=== PATIENT | female | born 1960 | race Caucasian/White ===

== ENCOUNTER → 2017-12-08 15:02 | Outpatient (CLI) | payer OTHER, SELFPAY ==
--- NOTE | 2017-12-08 15:13 | CT_ITS ---
EXAM: CT LUNG LOW DOSE WO CONTRAST COMPARISON: None no previous studies for comparison HISTORY: Current smoker one pack per day for 32 years = 32 pack-year. No symptoms or signs of lung cancer clinically. FINDINGS: No suspicious lung mass or nodule. Only Benign nodules(Category1).: There is a small calcified granuloma right lung base measuring up to 3 mm size. With some faint fibrotic scarring surrounding this calcified granuloma . LUNG PARENCHYMA. No focal pneumonia nor active disease Emphysema: Mild centrilobular emphysematous changes. Mild hyperexpansion with Small bleb formation seen at the RLL just above diaphragm Airways disease: . No significant airway thickening Not apparentOnly slight coarsening of interstitial markings and scattered areas of scarring There is minimal areas of what appear to be linear scarring at the periphery of the lung redmond bilaterally. Linear scarring most evident towards the posterior LLL left lung base as well as a small area at the posterior apical region on left. On the right there is some minor apical pleural scarring. Mild scarring and thickening along the inferior aspect major fissure with some minor nodularity here. Benign appearance. The central airways appear satisfactory . Pleura: No pleural calcification or lesion Mediastinum. No significant mediastinal or hilar adenopathy. Calcified node is seen at the inferior right kelly & right mediastinum, just inferior to the right bronchus. These along with the peripheral granuloma reflect over elements disease complex. Heart. Normal size. Mild Coronary artery calcification LAD.. .. Limited views Upper abdomen no no remarkable findings. Back IMPRESSION: 1. No suspicious lung nodule or mass. 2. Mild hyperexpansion & mild emphysematous changes 3. Lung RADS Category: 1 benign granuloma with associated scarring right lung base 4. Other findings: No other pertinent findings evident -------RECOMMENDATIONS: 12 monthd LDCT follow-up TECHNIQUE: The exam was performed on a [employer] Light Speed [address] scanner using 3.0 mGy CTDI. A low dose helical CT CHEST was performed on a multi-detector scanner. All CT scans at this facility use one or more dose reduction techniques, viz.: automated exposure control, ma/kV adjustment per patient size (including targeted exams where dose is matched to indication, i.e. head) or iterative reconstruction technique. The LDCT was performed in a facility that meets the criteria for the screening program. Data regarding this exam was submitted to ACR which is an approved registry. The order for this exam indicates that it came as a result of a lung cancer screening counseling shard decision-making visit that included all the elements required of such a visit including smoking cessation. The radiologist interpreting this exam meets the CMS criteria for the LDCT lung cancer screening program. The exam is reported using the Lung-RADS classification scale and reported to the ACR registry. NOTE: This study was performed for the specific purposes of lung cancer screening and is not an alternative to diagnostic chest CT. RADIATION DOSE: CTDI vol(CT dose Index-volume) = 2.9mGy DLP (Dose Length Product) = 95.08 mGy-cm
== END ==
PROVIDERS: PCP Family Medicine; Visit Provider Family Medicine
DX: Z12.2 Encounter for screening for malignant neoplasm of respiratory organs (principal); Z87.891 Personal history of nicotine dependence

== ENCOUNTER → 2020-12-18 10:08 | Outpatient (CLI) | payer BC, SELFPAY ==
--- NOTE | 2020-12-18 10:13 | MM_ITS ---
PROCEDURE: MM DIG SCREENING MAMM BI W/CAD Digital Breast Tomosynthesis Included CLINICAL INDICATION: SCREENING There is a history of breast cancer in the patient's maternal grandmother diagnosed after menopause. COMPARISON: MG DMSB DIGITAL MAMM-SCREEN BILATERAL from 04/20/2012 TECHNIQUE: Standard CC and MLO images and 3D Tomosynthesis was obtained. R2 CAD reviewed. FINDINGS: Moderate fibroglandular densities are seen in the central portions of both breast slightly more prominent right than left. There is a stable nodular density near the axillary tail right breast likely a low-lying or intramammary node. No CAD markings. And no suspicious microcalcifications. IMPRESSION: Moderate breast density with no suspicious lesions seen BI-RAD Category: 2 Benign Finding(s) FOLLOW-UP: 1YR 1 Year Follow-up (A letter has been sent to the patient regarding results of the study.) Dictated by: Dr. Neeraj Gallegos MD 12/20/2020 12:09 Dr. Neeraj Gallegos MD in [place] 12/20/2020 12:09
--- NOTE | 2020-12-18 10:14 | CT_ITS ---
PROCEDURE: CT LUNG SCREENING CLINICAL INDICATION: H/O NICOTINE DEPENDENCE COMPARISON: CT LUNGSCREEN CT lung screening from 12/08/2017 TECHNIQUE: The exam was performed on a [employer] Light Speed [address] scanner using 2.90 mGy CTDI. A low dose helical CT CHEST was performed on a multi-detector scanner. All CT scans at the facility use one or more dose reduction, viz: automated exposure control, ma/kV adjustment per patient size (including targeted exams where dose is matched to indication, i.e. head), or iterative reconstruction technique. The LDCT was performed in a facility that meets the criteria for the screening program. Data regarding this exam was submitted to ACR which is an approved registry. The order for this exam indicates that it came as a result of a lung cancer screening counseling shard decision-making visit that included all the elements required of such a visit including smoking cessation. The radiologist interpreting this exam meets the CMS criteria for the LDCT lung cancer screening program. The exam is reported using the Lung-RADS classification scale and reported to the ACR registry. NOTE: This study was performed for the specific purposes of lung cancer screening and is not an alternative to diagnostic chest CT. RADIATION DOSE: CTDI vol(CT dose Index-volume) = 2.90mG DLP (Dose Length Product) = 98.47 mGcm FINDINGS: COPD changes with scattered areas of scarring. No suspicious nodules identified. There is evidence of old granulomatous disease with calcified nodes in the mediastinum and a calcified granuloma in the right lung base. OTHER FINDINGS: Coronary artery calcifications are present. Colonic diverticulosis. IMPRESSION: Lung-RADS Category 2 Benign Appearance or Behavior Follow-up: Continue annual screening with LDCT in 12 months Dictated by: Will Lynn MD 01/01/2021 08:32 Will Lynn MD in [place] 01/01/2021 08:35
== END ==
PROVIDERS: PCP Family Medicine; Visit Provider Family Medicine
DX: Z12.31 Encounter for screening mammogram for malignant neoplasm of breast (principal); Z87.891 Personal history of nicotine dependence; Z12.2 Encounter for screening for malignant neoplasm of respiratory organs
CPT/HCPCS: 71271; 77063; 77067

== ENCOUNTER → 2021-01-09 10:45 | Outpatient (CLI) | payer BC, SELFPAY | PROVIDERS: Visit Provider Surgery | DX: Z01.812 Encounter for preprocedural laboratory examination (principal); Z11.52 Encounter for screening for COVID-19; Z12.11 Encounter for screening for malignant neoplasm of colon | CPT/HCPCS: C9803; U0003; U0005 ==

== ENCOUNTER 2021-01-11 08:36 | Day surgery (SDC) | payer BC, SELFPAY ==
[2021-01-08 12:40] VITALS: BMI 26.6
[2021-01-11 08:56] VITALS: BP 105/58; PULSE 59; RESP 18; TEMP 36.1; O2SAT 99
--- NOTE | 2021-01-11 09:27 | HMH.ANESCL ---
[facility] Anesthesia Checklist - Patient Identification Patient Identification: Arm Band - Structural Data Admitted From: Home Planned Operative Procedure/s: Colonoscopy Consent for Planned Operative Procedure(s) Verified: Yes - NPO Status Verified Time NPO: 00:00 - Airway Assessment C-Spine Mobility Assessed: Yes TMJ Mobility Assessed: Yes Dentition: Good Dentition - Neurological Assessment Level of Consciousness: Awake Hx Seizures: No Numbness or tingling in extremities: No - Anesthesia Plan Anesthesia Risk discussed: Yes Anesthesia Plan: Verified ASA Class: II Anesthesia Type: MAC [facility] History I have reviewed the patient's past medical history: Yes Medical History: Reports:: Gastroesophageal Reflux Disease(GERD), Hypertension Denies:: Cancer, Diabetes Mellitus Type 1, Internal Pacemaker, MRSA, Seizures *Have you ever received a pneumonia vaccine?: Yes *Have you received a flu vaccine this season?: Yes Anesthesia experience/problems:: None Laterality Cases: Bilateral: Tonsillectomy Other Surgeries: No: Pacemaker Amputation: No Fractures: No - *Social History Last grade of school completed: Advanced degree Smoking Status: Former smoker #Yrs smoked (if former smoker): 32 Smoking End Date: 12/2019 Alcohol Intake: current Alcohol Intake Frequency:: holidays/special occasions only Substance Use Type: denies use *Occupational Status:: unemployed Housing: house Household Members: spouse, family *Travel in the last 8 weeks: None Family Hx:: Cancer
[2021-01-11 09:44] VITALS: O2SAT 97
--- NOTE | 2021-01-11 10:17 | HMH.SCOPE ---
- Procedure: Date: 01/11/21 Patient Date of :: 1960 Procedure Performed:: Colonoscopy with polypectomy Indications:: History of colon polyps Performing Provider:: Ryland Styles MD Referring Provider:: . Sedation:: Monitored anesthesia care Procedure:: After informed consent was obtained the patient was taken to the endoscopy suite. Sedation ensued after the patient was transferred to the left lateral decubitus position. Pulse, blood pressure, and oxygen saturation were monitored throughout the procedure. Digital rectal exam revealed no significant abnormality. The colonoscope was placed in position. The entire colon was evaluated. The colonoscope was carefully removed and the patient was transferred to recovery in stable condition. Please see findings and specimens below for detail. Findings:: Bowel preparation fair to moderate Fairly severe lack of relaxation Mild hemorrhoidal tags Scattered diverticulosis Polyps (see specimens) Specimens:: Cecal polyp (cold snare) Polyp at 45 cm (cold snare) Recommendations:: Timing of repeat colonoscopy is pending pathology but will likely be around 2-3 years secondary to nature of polyps, slightly-limiting bowel preparation, and lack of relaxation. Complications:: No immediate Estimated blood obtained (mL): 1
[2021-01-11 10:20] VITALS: BP 83/53; PULSE 61; RESP 18; TEMP 36.1; O2SAT 95
[2021-01-11 10:30] VITALS: BP 85/52; PULSE 59; RESP 18; O2SAT 96
[2021-01-11 10:40] VITALS: BP 103/54; PULSE 63; RESP 18; O2SAT 99
[2021-01-11 10:45] VITALS: BP 103/49; PULSE 60; RESP 18; O2SAT 99
== END 2021-01-11 10:50 | disposition home or self-care (01) ==
LOC: OUTP 08:37
PROVIDERS: PCP Family Medicine; Visit Provider Surgery
PROC: 0DJD8ZZ Inspection of Lower Intestinal Tract, Via Natural or Artificial Opening Endoscopic (ICD-10-PCS; CPT 45385; principal; 2021-01-11 09:30)
DX: Z12.11 Encounter for screening for malignant neoplasm of colon (principal); I10 Essential (primary) hypertension; K21.9 Gastro-esophageal reflux disease without esophagitis; Z86.010 Personal history of colon polyps; Z80.9 Family history of malignant neoplasm, unspecified; Z79.82 Long term (current) use of aspirin; Z79.899 Other long term (current) drug therapy
CPT/HCPCS: 45385

== ENCOUNTER → 2021-02-12 11:35 | Outpatient (CLI) | payer BC, SELFPAY ==
[2021-02-12 13:23] LABS: Basophils # 0.1 K/mm3 (0-0.2); Basophils % 0.8 % (0.1-2.0); Eosinophils # 0.3 K/mm3 (0.0-0.4); Eosinophils % 4.7 % (0.1-12.0); Hemoglobin 13.5 g/dL (12.2-16.2); Lymphocytes # 2.4 K/mm3 (0.7-4.5); Lymphocytes % 35.9 % (10-50); Mean Corpuscular HGB Conc 32.8 g/dL (31.8-35.4); Mean Corpuscular Volume 94.5 fl (81-99); Mean Platelet Volume 7.8 fl (7.4-10.4); Monocytes # 0.4 K/mm3 (0.1-1.0); Monocytes % 5.3 % (1.7-9.3); Neutrophils # 3.6 K/mm3 (1.8-7.8); Neutrophils % 53.3 % (37.0-80.0); Platelet Count 352 K/mm3 (142-424); Red Blood Count 4.34 M/mm3 (4.20-5.40); Red Cell Distribution Width 12.2 % (11.5-17.5); White Blood Count 6.8 K/mm3 (4.8-10.8)
[2021-02-12 15:17] LABS: Strep Scrn Group A (Rapid) Negative (Negative)
== END ==
PROVIDERS: PCP Family Medicine; Visit Provider Nurse Practitioner
DX: Z20.822 Contact with and (suspected) exposure to COVID-19 (principal)
CPT/HCPCS: 36415; 85025; 87275; 87276; 87430; C9803; U0003; U0005

== ENCOUNTER → 2021-07-28 10:45 | Outpatient (CLI) | payer BC, SELFPAY | PROVIDERS: PCP Family Medicine; Visit Provider Surgery | DX: Z01.812 Encounter for preprocedural laboratory examination (principal); Z20.822 Contact with and (suspected) exposure to COVID-19 | CPT/HCPCS: C9803; U0003; U0005 ==

== ENCOUNTER 2021-07-31 09:20 | Day surgery (SDC) | payer BC, SELFPAY ==
[2021-07-26 11:11] VITALS: BMI 25.7
[2021-07-31 09:44] VITALS: BP 121/65; PULSE 55; RESP 16; TEMP 36.3; O2SAT 98
--- NOTE | 2021-07-31 10:20 | P.PN_ITS ---
[facility] Anesthesia Checklist - Structural Data Admitted From: Home Planned Operative Procedure/s: EGD/Colonoscopy Consent for Planned Operative Procedure(s) Verified: Yes Verified Documents: Surgical Consent - NPO Status Verified Time NPO: 06:30 - Airway Assessment C-Spine Mobility Assessed: Yes TMJ Mobility Assessed: Yes Dentition: Good Dentition - Neurological Assessment Level of Consciousness: Awake, Alert, Appropriate - Anesthesia Plan Anesthesia Risk discussed: Yes ASA Class: I Anesthesia Type: MAC [facility] History I have reviewed the patient's past medical history: Yes Medical History: Reports:: Gastroesophageal Reflux Disease(GERD), Hyperlipidemia, Hypertension Denies:: Cancer, Diabetes Mellitus Type 1, Diabetes Mellitus Type 2, Internal Pacemaker, MRSA, Seizures *Have you ever received a pneumonia vaccine?: No *Have you received a flu vaccine this season?: Yes Anesthesia experience/problems:: none Laterality Cases: Bilateral: Tonsillectomy Other Surgeries: Yes: Colonoscopy. No: Pacemaker Amputation: No Fractures: No - *Social History Last grade of school completed: High school graduate Smoking Status: Former smoker #Yrs smoked (if former smoker): 32 Alcohol Intake: current Alcohol Intake Frequency:: holidays/special occasions only Substance Use Type: denies use *Occupational Status:: retired Housing: house Household Members: spouse, children *Travel in the last 8 weeks: None Family Hx:: Cancer
[2021-07-31 10:46] VITALS: O2SAT 98
--- NOTE | 2021-07-31 11:29 | HMH.SCOPE ---
- Procedure: Date: 07/31/21 Patient Date of :: 1960 Procedure Performed:: Esophagogastroduodenoscopy with biopsy Colonoscopy with biopsy Indications:: History of sessile serrated adenoma of the cecum excised in December 2020 Gastroesophageal reflux Performing Provider:: Ryland Styles MD Referring Provider:: . Sedation:: Monitored anesthesia care Procedure:: After informed consent was obtained the patient was taken to the endoscopy suite. Sedation ensued after the patient was transferred to the left lateral decubitus position. Pulse, blood pressure, and oxygen saturation were monitored throughout the procedure. The endoscope was advanced beyond the duodenal bulb. Retroflexion within the gastric lumen was accomplished. The gastroscope was carefully removed. Digital rectal exam revealed no significant abnormality. The colonoscope was placed in position. The entire colon was evaluated. The colonoscope was carefully removed and the patient was transferred to recovery in stable condition. Please see findings and specimens below for detail. Findings:: Gastroesophageal junction at 36 cm Sliding hiatal hernia Mild gastritis Distal esophagitis Bowel preparation fair to moderate Specimens:: Antral biopsy Gastroesophageal junction biopsy Distal esophageal biopsy Biopsy of prior cecal polypectomy (serrated adenoma) site Recommendations:: Follow-up pathology Timing of repeat colonoscopy is pending pathology but likely be around 2 years secondary to history of serrated adenoma. Proton pump inhibition May require barium swallow and consideration of hiatal hernia repair Complications:: No immediate Estimated blood obtained (mL): 1
[2021-07-31 11:30] VITALS: BP 80/42; PULSE 60; RESP 18; TEMP 36.1; O2SAT 99
[2021-07-31 11:40] VITALS: BP 83/50; PULSE 61; RESP 18; O2SAT 95
[2021-07-31 11:50] VITALS: BP 105/56; PULSE 60; RESP 18; O2SAT 100
[2021-07-31 11:58] VITALS: BP 101/54; PULSE 53; RESP 18; O2SAT 100
== END 2021-07-31 12:00 | disposition home or self-care (01) ==
LOC: OUTP 09:24
PROVIDERS: PCP Family Medicine; Visit Provider Surgery
PROC: 0DJ08ZZ Inspection of Upper Intestinal Tract, Via Natural or Artificial Opening Endoscopic (ICD-10-PCS; CPT 43235; principal; 2021-07-31 10:30)
DX: K21.9 Gastro-esophageal reflux disease without esophagitis (principal); Z86.010 Personal history of colon polyps; Z87.19 Personal history of other diseases of the digestive system; K29.70 Gastritis, unspecified, without bleeding; K44.9 Diaphragmatic hernia without obstruction or gangrene
CPT/HCPCS: 43239; 45388

== ENCOUNTER → 2021-10-10 06:35 | Outpatient (CLI) | payer BC, SELFPAY ==
[2021-10-10 18:34] LABS: Basophils # 0.1 K/mm3 (0-0.2); Basophils % 1.2 % (0.1-2.0); Eosinophils # 0.5 K/mm3 (0.0-0.4); Eosinophils % 7.6 % (0.1-12.0); Hematocrit 42.1 % (37.0-47.0); Hemoglobin 12.8 g/dL (12.2-16.2); Lymphocytes # 1.9 K/mm3 (0.7-4.5); Lymphocytes % 30.3 % (10-50); Mean Corpuscular HGB Conc 30.4 g/dL (31.8-35.4); Mean Corpuscular Hemoglobin 30.6 pg (27.0-31.2); Mean Corpuscular Volume 100.6 fl (81-99); Mean Platelet Volume 9.4 fl (7.4-10.4); Monocytes # 0.4 K/mm3 (0.1-1.0); Monocytes % 5.6 % (1.7-9.3); Neutrophils # 3.5 K/mm3 (1.8-7.8); Neutrophils % 55.3 % (37.0-80.0); Platelet Count 349 K/mm3 (142-424); Red Blood Count 4.19 M/mm3 (4.20-5.40); Red Cell Distribution Width 13.8 % (11.5-17.5); White Blood Count 6.3 K/mm3 (4.8-10.8)
[2021-10-10 18:46] LABS: Alanine Aminotransferase 38 U/L (12-78); Albumin Level 4.2 g/dl (3.5-5.0); Albumin/Globulin Ratio 1.8 (1.1-1.8); Alkaline Phosphatase 128 U/L (38-126); Anion Gap 8.4 mEq/L (5-15); Aspartate Amino Transferase 41 U/L (14-36); Blood Urea Nitrogen 11 mg/dl (7-17); Calcium 9.3 mg/dl (8.4-10.2); Carbon Dioxide 27 mmol/L (22.0-30.0); Chloride 106 mmol/L (98-107); Chol/HDL Ratio 4.3 (1-3.5); Cholesterol 230 mg/dl (140-200); Estimated Glomerular Filt Rate 102 ml/min (>60); GFR (African American) 124 ML/MIN (>60); Globulin 2.3 g/dL (1.3-3.2); Glucose 95 mg/dl (74-100); HDL Cholesterol 53 mg/dl (40-60); Potassium 4.4 mmoL/L (3.5-5.1); Sodium 137 mmol/L (136-145); Total Protein,Serum 6.5 g/dl (6.3-8.2); Triglycerides 201 mg/dl (30-150); VLDL Cholesterol 40 mg/dL (0-40)
[2021-10-10 18:51] LABS: Creatinine,Urine Random 27 mg/dL (Not Estab.)
[2021-10-10 18:52] LABS: Bilirubin,Total 0.1 mg/dl (0.2-1.3)
[2021-10-10 19:06] LABS: Microalbumin < 6.000 mg/L (0-16.7)
[2021-10-10 19:17] LABS: Thyroid Stimulating Hormone 1.86 uIU/mL (0.465-4.68)
[2021-10-12 08:21] LABS: Direct LDL Cholesterol 142 mg/dL (100-129)
== END ==
PROVIDERS: PCP Family Medicine; Visit Provider Family Medicine
DX: I10 Essential (primary) hypertension (principal); E78.00 Pure hypercholesterolemia, unspecified; Z79.899 Other long term (current) drug therapy
CPT/HCPCS: 80053; 80061; 82043; 82570; 84443; 85025

== ENCOUNTER → 2022-11-26 23:30 | Outpatient (CLI) | payer BC, SELFPAY ==
[2022-11-26 18:55] LABS: Basophils % 0.7 % (0.1-2.0); Eosinophils # 0.5 K/mm3 (0.0-0.4); Eosinophils % 7.3 % (0.1-12.0); Hematocrit 43.7 % (37.0-47.0); Hemoglobin 13.7 g/dL (12.2-16.2); Lymphocytes # 1.9 K/mm3 (0.7-4.5); Lymphocytes % 29.6 % (10-50); Mean Corpuscular HGB Conc 31.3 g/dL (31.8-35.4); Mean Platelet Volume 9.8 fl (7.4-10.4); Monocytes # 0.3 K/mm3 (0.1-1.0); Monocytes % 5.1 % (1.7-9.3); Neutrophils # 3.8 K/mm3 (1.8-7.8); Neutrophils % 57.4 % (37.0-80.0); Platelet Count 366 K/mm3 (142-424); Red Blood Count 4.41 M/mm3 (4.20-5.40); Red Cell Distribution Width 13.7 % (11.5-17.5); White Blood Count 6.5 K/mm3 (4.8-10.8)
[2022-11-26 18:57] LABS: Alanine Aminotransferase 45 U/L (12-78); Albumin Level 4.5 g/dl (3.5-5.0); Albumin/Globulin Ratio 1.6 (1.1-1.8); Alkaline Phosphatase 126 U/L (38-126); Anion Gap 14.4 mEq/L (5-15); Aspartate Amino Transferase 44 U/L (14-36); Bilirubin,Total 0.4 mg/dl (0.2-1.3); Blood Urea Nitrogen 12 mg/dl (7-17); Calcium 9.4 mg/dl (8.4-10.2); Carbon Dioxide 27 mmol/L (22.0-30.0); Chloride 103 mmol/L (98-107); Cholesterol 274 mg/dl (140-200); Estimated Glomerular Filt Rate 102 ml/min (>60); GFR (African American) 123 ML/MIN (>60); Globulin 2.8 g/dL (1.3-3.2); Glucose 120 mg/dl (74-100); HDL Cholesterol 55 mg/dl (40-60); Potassium 4.4 mmoL/L (3.5-5.1); Sodium 140 mmol/L (136-145); Total Protein,Serum 7.3 g/dl (6.3-8.2); Triglycerides 382 mg/dl (30-150); VLDL Cholesterol 76 mg/dL (0-40)
[2022-11-26 19:25] LABS: Direct LDL Cholesterol 144.05 mg/dL (100-129)
[2022-11-26 19:28] LABS: Thyroid Stimulating Hormone 2.24 uIU/mL (0.465-4.68)
[2022-11-26 19:30] LABS: Creatinine,Urine Random 51 mg/dL (Not Estab.)
[2022-11-26 19:39] LABS: Microalbumin < 6.000 mg/L (0-16.7)
[2022-11-26 19:47] LABS: Vitamin B12 231 pg/mL (239-931)
[2022-11-26 20:01] LABS: Hemoglobin A1C 5.7 % (4.0-6.0)
== END ==
PROVIDERS: PCP Nurse Practitioner; Visit Provider Nurse Practitioner
DX: E78.5 Hyperlipidemia, unspecified (principal); I10 Essential (primary) hypertension; Z13.1 Encounter for screening for diabetes mellitus; Z87.891 Personal history of nicotine dependence
CPT/HCPCS: 80053; 80061; 82043; 82570; 82607; 83036; 84443; 85025

== ENCOUNTER → 2022-12-13 12:53 | Outpatient (CLI) | payer BC, SELFPAY ==
--- NOTE | 2022-12-13 13:00 | CA_ITS ---
APPROVED REPORT EXAM: Comprehensive 2D, Doppler, and color-flow Echocardiogram Elementary Supervisor: Cathie Vargas CRT Ht: 5 ft 3 in Wt: 165lbs BSA: 1.78 BP: 124/78 mmHg Indications: Palpitations, Hyperlipidemia, Hypertension/HDD 2D Dimensions LVOT 2.02 cm (M/F) 1.5-2.5 LA Volume 22.20 mL LA Volume Index 12.10 mL/m2 (M/F) 16-34 M-Mode Dimensions RVDd 2.47 cm (0.9-2.6) LA Diam 3.51 cm (1.9-4.0) LVDd 4.72 cm (3.5-5.7) Ao Diam 3.92 cm (2.0-3.7) LVDs 2.93 cm (3.5-5.7) IVSd 1.25 cm (0.6-1.1) PWd 0.86 cm (0.6-1.1) EF (Teich) 68.10% FS 37.90% EDV (Teich) 103.40 mL TAPSE 2.06 (<1.7) ESV (Teich) 33.00 mL LV Diastology MED E' 7.80 (< 7 cm/sec) MED A' 11.90 cm/s LAT E' 6.00 (<10 cm/sec) LAT A' 13.40 cm/s Aortic Valve AO Peak GR. 6.00 mmHg Pulmonary Valve PV Peak Velocity 128.00 (50-150 cm/s) Tricuspid Valve TR P. Velocity 247.00 cm/s RAP Estimate 10.00 mmHg RVSP 34.50 mmHg Left Ventricle The left ventricle is normal size. The left ventricular systolic function is normal. The left ventricular ejection fraction is within the normal range. There is normal left ventricular wall thickness. There is normal LV segmental wall motion. The left ventricular diastolic function is normal. LVEF is 55%. Right Ventricle The right ventricle is mildly dilated. The right ventricular systolic function is normal. Atria The left atrium size is normal. The right atrium size is normal. There is no Doppler evidence of interatrial shunt. Aortic Valve The aortic valve is normal in structure. The aortic valve is trileaflet. There is no aortic valvular stenosis. No aortic regurgitation is present. Mitral Valve The mitral valve is normal in structure. No evidence of mitral valve stenosis. Trace mitral regurgitation. Tricuspid Valve The tricuspid valve leaflets are thin and pliable. Trace tricuspid regurgitation. There is insufficient TR jet to estimate RVSP. Pulmonic Valve The pulmonary valve is normal in structure. Trace pulmonic regurgitation. Great Vessels The aortic root is normal in size. The ascending aorta is normal in size. IVC is normal in size and collapses >50% with inspiration. Pericardium There is no pericardial effusion. Other Information Study Quality: Fair Conclusion Normal biventricular systolic function. Mild RV dilation. No significant valvular stenosis or regurgitation. Electronically signed by : Bethany Donis MD 12/15/2022 21:57:06
--- NOTE | 2022-12-13 13:04 | CA_ITS ---
FINAL REPORT CLINICAL HISTORY: bilateral leg paresthesia, ex-smoker FINDINGS: Right lower extremity, flow velocities (cm per second): Common femoral artery: 101 Proximal SFA: 69 Mid SFA: 96 Distal SFA: 81 Anterior tibial artery: 73 Posterior tibial artery: 73 Peroneal artery: 54 Left lower extremity, flow velocities (cm per second): Common femoral artery: 87 Proximal SFA: 100 Mid SFA 90 Distal SFA: 97 Anterior tibial artery: 79 Posterior tibial artery: 63 Peroneal artery 51 Waveforms are noted to be biphasic and triphasic. IMPRESSION: No significant vascular disease. Reviewed, Interpreted and Dictated by Brad Damon III, MD Transcribed by Waleska Thayer Authenticated and [facility]
--- NOTE | 2022-12-13 14:08 | CT_ITS ---
FINAL REPORT CLINICAL HISTORY: lung cancer screening former smoker, quit 3 yeras go. smoked 1 ppd x33 years COMPARISON: 12/18/2020 FINDINGS: CTDI vol (mGy): 2.90 DLP: 96.[address] images of the chest were obtained using the low-dose protocol for screening. There is no evidence of mediastinal or hilar mass or adenopathy. No axillary mass or adenopathy is identified. On the lung window images, no pulmonary mass or suspicious nodule is identified. There are calcified granulomas. Mild scarring is seen moderate coronary artery calcifications are noted IMPRESSION: Lung RADS category 1 . Recommend 12 month followup low-dose CT for further evaluation. Reviewed, Interpreted and Dictated by Brad Damon III, MD Transcribed by Corie Hinton Authenticated and [facility]
== END ==
LOC: RT 12:53
PROVIDERS: PCP Nurse Practitioner; Visit Provider Nurse Practitioner
DX: R00.2 Palpitations (principal); R20.2 Paresthesia of skin; Z87.891 Personal history of nicotine dependence; Z12.2 Encounter for screening for malignant neoplasm of respiratory organs
CPT/HCPCS: 71271; 93306; 93925

== ENCOUNTER → 2022-12-19 10:15 | Outpatient (CLI) | payer BC, SELFPAY ==
--- NOTE | 2022-12-19 10:19 | XR_ITS ---
FINAL REPORT CLINICAL HISTORY: bilateral low back pain with sciatica COMPARISON: None FINDINGS: No fracture is identified. Moderate degenerative changes present. There is facet osteoarthropathy in the mid to lower lumbar spine. There is mild anterolisthesis of L5 on S1. Mild vascular calcifications are identified. Alignment is normal. IMPRESSION: Moderate degenerative change with facet osteoarthropathy and mild anterolisthesis of L5 on S1. Reviewed, Interpreted and Dictated by Brad Damon III, MD Transcribed by Annabel Prasad Authenticated and [facility]
--- NOTE | 2022-12-19 10:19 | MM_ITS ---
PROCEDURE INFORMATION: Exam: MG Bilateral Screening 3D Mammography Exam date and time: 12/19/2022 10:18 AM Age: 62 years old Clinical indication: Screening examination; Additional info: Breast cancer screening TECHNIQUE: Imaging protocol: Bilateral Screening tomosynthesis and 2D mammography including computer-aided detection (CAD) when performed. COMPARISON: 1. MG MM DIG SCREENING MAMM BI W/CAD 12/18/2020 10:24 AM 2. MG DMSB DIGITAL MAMM-SCREEN BILATERAL 04/20/2012 10:37 AM 3. BL US BREAST-LT 05/04/2012 2:13 PM FINDINGS: MAMMOGRAPHY: Breast composition: The breasts are heterogeneously dense, which may obscure small masses. Mass: No suspicious masses. Architectural distortion: No suspicious distortion. Calcifications: No suspicious calcifications. Asymmetric density: None. Skin thickening: None. Axillary adenopathy: None. IMPRESSION: No mammographic evidence of malignancy. Annual screening is recommended unless otherwise clinically indicated. ASSESSMENT: BI-RADS Category 1: Negative
== END ==
PROVIDERS: PCP Nurse Practitioner; Visit Provider Nurse Practitioner
DX: Z12.31 Encounter for screening mammogram for malignant neoplasm of breast (principal); M54.41 Lumbago with sciatica, right side; M54.42 Lumbago with sciatica, left side; R00.2 Palpitations
CPT/HCPCS: 72100; 77063; 77067; 93225

== ENCOUNTER → 2023-01-07 09:31 | Outpatient (CLI) | payer BC, SELFPAY ==
[2023-01-07 18:43] LABS: Coronavirus 19, PCR Not Detected (NotDetected); Influenza A, PCR Not Detected (NotDetected)
[2023-01-07 18:44] LABS: Influenza B, PCR Not Detected (NotDetected)
== END ==
PROVIDERS: PCP Nurse Practitioner; Visit Provider Nurse Practitioner
DX: J06.9 Acute upper respiratory infection, unspecified (principal)
CPT/HCPCS: 87636

== ENCOUNTER 2023-07-24 09:06 | Outpatient (CLI) | payer BC, SELFPAY ==
[2023-07-24 17:49] LABS: Adenovirus,PCR Not Detected (NotDetected); Bordetella Pertussis Not Detected (NotDetected); Chlamydophila Pneumoniae, PCR Not Detected (NotDetected); Coronavirus 19, PCR Not Detected (NotDetected); Coronavirus 229E Not Detected (NotDetected); Coronavirus NL63 Not Detected (NotDetected); Coronavirus OC43 Not Detected (NotDetected); Coronovirus HKU1,PCR Not Detected (NotDetected); Human Metapneumovirus Not Detected (NotDetected); Influenza A, PCR Not Detected (NotDetected); Influenza AH1, 2009 Not Detected (NotDetected); Influenza AH1, PCR Not Detected (NotDetected); Influenza AH3,PCR Not Detected (NotDetected); Influenza B, PCR Not Detected (NotDetected); Mycoplasma Pneumoniae, PCR Not Detected (NotDetected); Parainfluenza 1, PCR Not Detected (NotDetected); Parainfluenza 2, PCR Not Detected (NotDetected); Parainfluenza 3, PCR Not Detected (NotDetected); Parainfluenza 4, PCR Not Detected (NotDetected); Respiratory Syncytial Virus Not Detected (NotDetected); Rhinovirus/Enterovirus Not Detected (NotDetected)
== END 2023-07-24 23:59 | disposition home or self-care (01) ==
LOC: LAB.DROPOF 07-26 09:06
PROVIDERS: PCP Nurse Practitioner; Visit Provider Nurse Practitioner
DX: J06.9 Acute upper respiratory infection, unspecified (principal); J02.9 Acute pharyngitis, unspecified; R05.8 Other specified cough; R11.0 Nausea; Z20.828 Contact with and (suspected) exposure to other viral communicable diseases
CPT/HCPCS: 87581; 87632; 87635; 87798

== ENCOUNTER 2024-05-26 18:38 | Outpatient (CLI) | payer BC, SELFPAY | END 2024-05-26 23:59 | disposition home or self-care (01) | LOC: LAB.DROPOF 18:39 | PROVIDERS: PCP Nurse Practitioner; Visit Provider Nurse Practitioner | DX: E53.8 Deficiency of other specified B group vitamins (principal); E78.00 Pure hypercholesterolemia, unspecified; I10 Essential (primary) hypertension ==

== ENCOUNTER 2024-05-26 18:43 | Outpatient (CLI) | payer BC, SELFPAY ==
[2024-05-26 20:18] LABS: Alanine Aminotransferase 93 U/L (12-78); Albumin Level 4.1 g/dl (3.5-5.0); Albumin/Globulin Ratio 1.6 (1.1-1.8); Alkaline Phosphatase 152 U/L (38-126); Anion Gap 13.5 mEq/L (5-15); Aspartate Amino Transferase 85 U/L (14-36); Bilirubin,Total 0.4 mg/dl (0.2-1.3); Blood Urea Nitrogen 12 mg/dl (7-17); Calcium 9.3 mg/dl (8.4-10.2); Carbon Dioxide 27 mmol/L (22.0-30.0); Chloride 104 mmol/L (98-107); Chol/HDL Ratio 2.4 (1-3.5); Cholesterol 150 mg/dl (140-200); Estimated Glomerular Filt Rate 101 ml/min (>60); GFR (African American) 123 ML/MIN (>60); Globulin 2.5 g/dL (1.3-3.2); Glucose 120 mg/dl (74-100); HDL Cholesterol 63 mg/dl (40-60); Potassium 4.5 mmoL/L (3.5-5.1); Sodium 140 mmol/L (136-145); Total Protein,Serum 6.6 g/dl (6.3-8.2); Triglycerides 154 mg/dl (30-150); VLDL Cholesterol 31 mg/dL (0-40)
[2024-05-26 20:29] LABS: Direct LDL Cholesterol 69.69 mg/dL (100-129)
[2024-05-26 20:46] LABS: Creatinine,Urine Random 55 mg/dL (Not Estab.)
[2024-05-26 21:10] LABS: Vitamin B12 319 pg/mL (239-931)
[2024-05-26 22:03] LABS: Hemoglobin A1C 6.2 % (4.0-6.0)
== END 2024-05-26 23:59 | disposition home or self-care (01) ==
LOC: LAB.DROPOF 18:44
PROVIDERS: PCP Nurse Practitioner; Visit Provider Nurse Practitioner
DX: E78.00 Pure hypercholesterolemia, unspecified (principal); I10 Essential (primary) hypertension; E53.8 Deficiency of other specified B group vitamins
CPT/HCPCS: 80053; 80061; 82043; 82570; 82607; 83036

== ENCOUNTER 2024-07-08 14:30 | Outpatient (CLI) | payer BC, SELFPAY | END 2024-07-08 23:59 | disposition home or self-care (01) | LOC: LAB.DROPOF 07-09 11:35 | PROVIDERS: PCP Nurse Practitioner; Visit Provider Nurse Practitioner | DX: R30.0 Dysuria (principal) | CPT/HCPCS: 87086 ==

== ENCOUNTER 2024-09-02 13:58 | Outpatient (CLI) | payer BC, SELFPAY ==
[2024-09-02 19:22] LABS: Alanine Aminotransferase 50 U/L (12-78); Albumin Level 4.3 g/dl (3.5-5.0); Albumin/Globulin Ratio 1.8 (1.1-1.8); Alkaline Phosphatase 135 U/L (38-126); Anion Gap 12.4 mEq/L (5-15); Aspartate Amino Transferase 43 U/L (14-36); Bilirubin,Total 0.4 mg/dl (0.2-1.3); Blood Urea Nitrogen 11 mg/dl (7-17); Calcium 9.7 mg/dl (8.4-10.2); Carbon Dioxide 29 mmol/L (22.0-30.0); Chloride 101 mmol/L (98-107); Cholesterol 164 mg/dl (140-200); Creatinine,Serum 0.70 mg/dl (0.52-1.04); Estimated Glomerular Filt Rate 85 ml/min (>60); GFR (African American) 103 ML/MIN (>60); Globulin 2.4 g/dL (1.3-3.2); Glucose 96 mg/dl (74-100); HDL Cholesterol 57 mg/dl (40-60); Potassium 4.4 mmoL/L (3.5-5.1); Sodium 138 mmol/L (136-145); Total Protein,Serum 6.7 g/dl (6.3-8.2); Triglycerides 271 mg/dl (30-150)
[2024-09-02 19:52] LABS: Thyroid Stimulating Hormone 1.79 uIU/mL (0.465-4.68)
[2024-09-02 21:21] LABS: Hemoglobin A1C 6.9 % (4.0-6.0)
--- OUTSIDE RECORDS SUMMARY | 2024-09-03 13:46 | XMS_ITS | Clinical Summary ---
Author Organization [facility] Address [address] [facility] [address] [place] [address] Phone Care Team Providers Care Thread Clipper Name Role Phone Mau Neff MD Primary Care Provider [phone] Matt Suazo MD Unavailable [phone] Allergies No known active allergies Medications losartan (COZAAR) 25 mg Oral Tablet Take by mouth daily. Active dexAMETHasone (DECADRON) 4 mg Oral Tablet Take by mouth every 6 hours. Active Varenicline 0.5 mg (11)- 1 mg (42) Oral Tablets, Dose Pack Take by mouth. Active cyclobenzaprine (FLEXERIL) 10 mg Oral Tablet Take by mouth 3 times daily. Active aspirin (ASPIRIN) 81 mg Oral Tablet, Chewable Take 1 Tab by mouth daily. 30 Tab 11 12/03/2019 Active metoprolol succinate (TOPROL-XL) 25 mg Oral Tablet Sustained Release 24 hr Take 1 Tab by mouth daily. 30 Tab 11 12/03/2019 Active atorvastatin (LIPITOR) 40 mg Oral Tablet TAKE ONE TABLET BY MOUTH NIGHTLY 90 Tablet 11/10/2020 Active Active Problems No known active problems Social History Tobacco Use Types Packs/Day Years Used Date Smoking Tobacco: Every Day Cigarettes 1 39.5 Started: 02/24/1985 Smokeless Tobacco: Never Comments Unknown Sex and Gender Information Value Date Recorded Sex Assigned at Not on file Legal Sex Female 4:20 AM EDT Gender Identity Not on file Sexual Orientation Not on file Obstetrics History Last Filed Vital Signs Vital Sign Reading Time Taken Comments Blood Pressure 98/57 12/10/2019 3:15 PM EDT Pulse 64 12/10/2019 3:15 PM EDT Temperature 36.1 C (97 F) 12/10/2019 12:50 PM EDT Respiratory Rate 17 12/10/2019 3:15 PM EDT Oxygen Saturation 98% 12/10/2019 3:15 PM EDT Inhaled Oxygen Concentration - - Weight 69 kg (152 lb 1.6 oz) 12/10/2019 12:29 PM EDT Height 162.6 cm (5' 4 ) 12/10/2019 12:29 PM EDT Body Mass Index 26.11 12/10/2019 12:29 PM EDT Plan of Treatment Health Maintenance Due Date Last Done Comments Annual Wellness Exam 1964 COVID-19 Vaccine (#1) 1966 Hepatitis C Screening 11/04/1979 DTaP/TDaP/Td (1 - Tdap) 1980 Pneumococcal Vaccine 50+ (1 of 2 - PCV) 1980 Zoster (1 of 2) 1980 Cervical Cancer Screening 1982 Pap Smear 1982 HPV/Pap Cotest 11/04/1991 Breast Cancer Screening 2001 Cologuard 2006 Colon Cancer Screening 2006 Colonoscopy 2006 FIT 2006 Sigmoidoscopy 2006 Virtual Colonography 2006 Low Dose Lung Cancer Screening 11/08/2020 11/09/2019 RSV or 60+ (1 - Ris k 60-74 years 1-dose series) 2021 Influenza Vaccine (#1) 2024 Hepatitis B Vaccine Aged Out No longe r eligible based on patient's age to complete this topic Meningococcal B Vaccine Aged Out No l onger eligible based on patient's age to complete this topic Procedures Procedure Name Priority Date/Time Associated Diagnosis Comments CT LUNG CANCER SCREENING LOW DOSE Routine 11/09/2019 11:32 AM EDT Personal history of tobacco use from Last 3 Months or Most Recently Relevant to Health Maintenance Results * CT LUNG CANCER SCREENING LOW DOSE (11/09/2019 11:32 AM EDT) Anatomical Region Laterality Modality Lung Computed Tomogra phy 11/09/2019 11:3 2 AM EDT Impressions 11/09/2019 12:24 PM EDT Unremarkable low-dose screening chest CT. There is moderate coronary artery disease involving the left main coronary artery and LAD. RECOMMENDATION: Low Dose CT - 1 Yr A summary letter communicating these results will be mailed to the patient's address of record. - [email or web address] Narrative 11/09/2019 12:[address] LUNG CANCER SCREENING LOW DOSE 11/09/2019 11:32 AM CLINICAL HISTORY: Asymptomatic patient meeting NCCN high risk criteria for lung screening. Z87.891-Personal history of nicotine [id number] COMPARISON: None. PROCEDURE COMMENTS: Noncontrast, low-dose, multidetector CT chest per standard department protocol. Interactive 3-D postprocessing done by the reviewing physician on a [employer] workstation, using Maximum intensity projections (MIPS) and [employer] LUNG CAD for improved lesion detection. Go images archived to PACS.Automated exposure control for dose reduction was used. CTDIvol: 1.3 mGy. DLP: 41 mGy-cm. FINDINGS: The trachea and central airways are patent. There are no pleural effusions. There is a calcified granuloma in the right lower lobe. There are no suspicious pulmonary nodules or masses. The thyroid gland is normal. The esophagus is normal. The thoracic aorta is normal caliber. There is no axillary, mediastinal or hilar lymphadenopathy. The upper abdomen is normal. Coronary artery calcification: Moderate. FOLLOW-UP CODE: Lung-RADS Category 1: Negative: No nodule or definitely benign nodule(s). Continued ANNUAL LOW-DOSE SCREENING CT SCAN (IMG 13594) suggested if age <78. Lung-RADS Modifier N/A: No Modifier Needed Procedure Note Priscila Salazar MD - 11/09/2019 CT LUNG CANCER SCREENING LOW DOSE 11/09/2019 11:32 AM CLINICAL HISTORY: Asymptomatic patient meeting NCCN high risk criteria forlung screening. Z87.891-Personal history of nicotine [id number] COMPARISON: None. PROCEDURE COMMENTS: Noncontrast, low-dose, multidetector CT chest perstandard department protocol. Interactive 3-D postprocessing done by thereviewing physician on a [employer] workstation, using Maximum intensity projections(MIPS) and [employer] LUNG CAD for improved lesion detection. Go images archived to PACS.Automated exposure control for dose reduction was used. CTDIvol: 1.3mGy. DLP: 41 mGy-cm. FINDINGS: The trachea and central airways are patent. There are nopleural effusions. There is a calcified granuloma in the right lower lobe. Thereare no suspicious pulmonary nodules or masses. The thyroid gland is normal. The esophagus is normal. The thoracic aortais normal caliber. There is no axillary, mediastinal or hilarlymphadenopathy. The upper abdomen is normal. Coronary artery calcification: Moderate. FOLLOW-UP CODE: Lung-RADS Category 1: Negative: No nodule or definitelybenign nodule(s). Continued ANNUAL LOW-DOSE SCREENING CT SC[place] [place] [address]suggested if age <78. Lung-RADS Modifier N/A: No Modifier Needed IMPRESSION: Unremarkable low-dose screening chest CT. There is moderate coronary artery disease involving the left main coronary artery and LAD. RECOMMENDATION: Low Dose CT - 1 Yr A summary letter communicating these results will be mailed to thepatient's address of record. - [email or web address] Florence Anthony COMPUTER PROGRAMMER CHIEF [facility] [place] ORDERABLES Final Result from Last 3 Months or Most Recently Relevant to Health Maintenance Insurance [address] [place], [place] [id number] [employer] P[employer] Care Teams Thread Clipper Relationship Specialty Start Date End Date Mau Neff MD [address] [place] [address] PCP - General Family Medicine 10/24/11 Matt Suazo MD [address] [place] [address] [place] [address] Internal Medicine-Cardiovascular Disease 12/01/19
== END 2024-09-02 23:59 | disposition home or self-care (01) ==
LOC: LAB.DROPOF 09-03 13:45
PROVIDERS: PCP Nurse Practitioner; Visit Provider Nurse Practitioner
DX: E66.9 Obesity, unspecified (principal); I10 Essential (primary) hypertension; E78.00 Pure hypercholesterolemia, unspecified; R73.01 Impaired fasting glucose
CPT/HCPCS: 80053; 80061; 83036; 84443

== ENCOUNTER 2024-12-22 11:40 | Outpatient (CLI) | payer BC, SELFPAY ==
[2024-12-22 19:39] LABS: Alanine Aminotransferase 38 U/L (12-78); Albumin Level 3.6 g/dl (3.5-5.0); Albumin/Globulin Ratio 1.0 (1.1-1.8); Alkaline Phosphatase 134 U/L (38-126); Anion Gap 11.3 mEq/L (5-15); Aspartate Amino Transferase 38 U/L (14-36); Bilirubin,Total 0.6 mg/dl (0.2-1.3); Blood Urea Nitrogen 13 mg/dl (7-17); Calcium 9.5 mg/dl (8.4-10.2); Carbon Dioxide 26 mmol/L (22.0-30.0); Chloride 102 mmol/L (98-107); Creatinine,Serum 0.80 mg/dl (0.52-1.04); Estimated Glomerular Filt Rate 72 ml/min (>60); GFR (African American) 88 ML/MIN (>60); Globulin 3.5 g/dL (1.3-3.2); Glucose 105 mg/dl (74-100); Potassium 4.3 mmoL/L (3.5-5.1); Sodium 135 mmol/L (136-145); Total Protein,Serum 7.1 g/dl (6.3-8.2)
[2024-12-22 20:22] LABS: Hemoglobin A1C 5.6 % (4.0-6.0); Hepatitis C Ab Qual. W/ RFX NEGATIVE (Negative)
--- OUTSIDE RECORDS SUMMARY | 2024-12-23 13:55 | XMS_ITS | Clinical Summary ---
Author Organization [facility] Address [place] [address] Phone Care Team Providers Care Home Demonstration Agent Name Role Phone Mau Neff MD Primary Care Provider [phone] Matt Suazo MD Unavailable [phone] Allergies No known active allergies Medications losartan [...] Date Smoking Tobacco: Every Day Cigarettes 1 39.8 Started: 02/24/1985 Smokeless Tobacco: Never Comments Unknown Sex and Gender Information Value Date Recorded Sex Assigned at Not on file Legal Sex Female 4:20 AM EDT Gender Identity Not on file Sexual Orientation Not on file Last Filed Vital Signs Vital Sign Reading [...] FIT 2006 Sigmoidoscopy 2006 Virtual Colonography 2006 RSV or 60+ (1 - Ris k 50-74 years 1-dose series) 11/04/2011 Low Dose Lung Cancer Screening 11/08/2020 11/09/2019 Influenza Vaccine (#1) 2024 Hepatitis B Vaccine [...] to the patient's address of record. - [email or web address] Narrative 11/09/2019 12:[address] LUNG CANCER SCREENING LOW DOSE 11/09/2019 11:32 AM CLINICAL HISTORY: Asymptomatic patient meeting NCCN high risk criteria for lung screening. Z87.891-Personal history of nicotine [id number] COMPARISON: None. PROCEDURE COMMENTS: Noncontrast, low-dose, multidetector CT chest per standard department protocol. Interactive 3-D postprocessing done by the reviewing physician on a [employer] workstation, using Maximum intensity projections (MIPS) and [employer] LUNG CAD for improved lesion detection. Go [...] Continued ANNUAL LOW-DOSE SCREENING CT SCAN (IMG 35323) suggested if age <78. Lung-RADS Modifier N/A: No Modifier Needed Procedure Note Priscila Salazar MD - 11/09/2019 CT LUNG CANCER SCREENING LOW DOSE 11/09/2019 11:32 AM CLINICAL HISTORY: Asymptomatic patient meeting NCCN high risk criteria forlung screening. Z87.891-Personal history of nicotine [id number]-CM COMPARISON: None. PROCEDURE COMMENTS: Noncontrast, low-dose, multidetector [...] nodule(s). Continued ANNUAL LOW-DOSE SCREENING CT SCAN ([facility] [place] [id number])suggested if age <78. Lung-RADS Modifier N/A: No Modifier Needed IMPRESSION: Unremarkable low-dose screening chest CT. There is moderate coronary artery disease involving the left main coronary artery and LAD. RECOMMENDATION: Low Dose CT - 1 Yr A summary letter communicating these results will be mailed to thepatient's address of record. - [email or web address] Florence Leana Anthony APRN [facility] [place] CT ORDERABLES Final Result from Last 3 Months or Most Recently Relevant to Health Maintenance Insurance [facility] Care Teams Home Demonstration Agent Relationship Specialty Start Date End Date Mau Neff MD [address] [place] [id number] PCP - General Family Medicine 10/24/11 Matt Suazo MD [address] [place] [address] [place] [address] Internal Medicine-Cardiovascular Disease 12/01/19
[2024-12-24 06:11] LABS: Hepatitis B Surface Antigen Negative (Negative)
== END 2024-12-22 23:59 | disposition home or self-care (01) ==
LOC: LAB.DROPOF 12-23 13:46
PROVIDERS: PCP Nurse Practitioner; Visit Provider Nurse Practitioner
DX: E11.9 Type 2 diabetes mellitus without complications (principal); Z11.59 Encounter for screening for other viral diseases
CPT/HCPCS: 80053; 83036; 86803; 87340; 87389

== ENCOUNTER 2025-01-13 10:10 | Outpatient (CLI) | payer BC, SELFPAY ==
--- NOTE | 2025-01-13 10:30 | MM_ITS ---
PROCEDURE INFORMATION: Exam: MG Bilateral Screening 3D Mammography Exam date and time: 01/13/2025 10:16 AM Age: 64 years old Clinical indication: Screening examination TECHNIQUE: Imaging protocol: Bilateral Screening tomosynthesis and 2D mammography including computer-aided detection (CAD) when performed. COMPARISON: 1. MG MM DIG SCREENING MAMM BI W/CAD 12/19/2022 10:18 AM 2. MG MM DIG SCREENING MAMM BI W/CAD 12/18/2020 10:24 AM FINDINGS: MAMMOGRAPHY: Breast composition: The breasts are heterogeneously dense, which may obscure small masses. Mass: None. Architectural distortion: None. Calcifications: No suspicious calcifications. Asymmetric density: None. Skin thickening: None. Axillary adenopathy: None. IMPRESSION: No mammographic evidence of malignancy. Annual screening is recommended unless otherwise clinically indicated. ASSESSMENT: BI-RADS Category 1: Negative.
--- NOTE | 2025-01-13 11:00 | CT_ITS ---
FINAL REPORT TECHNIQUE: Thin section axial images were obtained from the lung apices to the upper abdomen by computed tomography. Reformatted images were obtained and reviewed. This study was performed with techniques to keep radiation doses al low as reasonably achievable (ALARA). Individualized dose reduction techniques using automated exposure control or adjustment of mA and/or kV according to the patient's size were employed. CLINICAL HISTORY: lung cancer screening PREVIOUS SMOKER FOR 30 YEARS 1 /2 PPD, QUIT 5 YEARS AGO COMPARISON: 12/13/2022 FINDINGS: CHEST CT LOW DOSE 64-year-old female, former smoker who quit 5 years ago, 36-jmti-vncu history CTDI vol (mGy): 2.90 DLP (mGy-cm): 99.25 There is no axillary adenopathy. There is no mediastinal or hilar mass or adenopathy. The heart is normal in size. There is no pericardial or pleural effusion. Lung window images demonstrate no suspicious infiltrate or nodule. Calcified right hilar and subcarinal nodes are again noted. Limited images of the upper abdomen are unremarkable. IMPRESSION: Lung-RADS category 1. Recommend 12 month follow up low dose chest CT. Reviewed, Interpreted and Dictated by Antoine Horta MD Transcribed by Annabel Prasad Authenticated and [facility]
== END 2025-01-13 23:59 | disposition home or self-care (01) ==
LOC: RAD 10:13
PROVIDERS: PCP Nurse Practitioner; Visit Provider Nurse Practitioner
DX: Z12.31 Encounter for screening mammogram for malignant neoplasm of breast (principal); R92.333 Mammographic heterogeneous density, bilateral breasts; Z12.2 Encounter for screening for malignant neoplasm of respiratory organs; Z87.891 Personal history of nicotine dependence
CPT/HCPCS: 71271; 77063; 77067